=== PATIENT | male | born 1980 | race Caucasian/White ===

== ENCOUNTER 2017-09-24 16:03 | Emergency (ER) | payer OTHER ==
[~2017-09-24] VITALS: Wt 81.6 kg
== END 2017-09-24 16:11 | disposition left against medical advice (07) ==
LOC: ED 16:03
DX: R40.20 Unspecified coma (principal)

== ENCOUNTER → 2017-10-13 | Outpatient (CLI) | payer OTHER | END | disposition home or self-care (01) | LOC: RAD 11:15 | DX: S32.412A Displaced fracture of anterior wall of left acetabulum, initial encounter for closed fracture (principal); X58.XXXA Exposure to other specified factors, initial encounter; Y93.89 Activity, other specified; Y92.89 Other specified places as the place of occurrence of the external cause; Y99.8 Other external cause status ==

== ENCOUNTER 2018-04-28 22:34 | Emergency (ER) | payer SELFPAY ==
[~2018-04-28] VITALS: Wt 79.4 kg
== END 2018-04-29 01:15 | disposition expired ==
LOC: ED 22:34
DX: I46.9 Cardiac arrest, cause unspecified (principal)